=== PATIENT | female | born 1970 | race Caucasian/White ===

== ENCOUNTER 2017-01-26 22:43 | Emergency (ER) | payer OTHER ==
[~2017-01-26] VITALS: Ht 177.8 cm; Wt 156.4 kg
[2017-01-27 00:37] LABS: BASOPHIL COUNT 0.1 K/uL (0-0.1); EOSINOPHIL (%) 1.4 % (0-5); EOSINOPHIL COUNT 0.1 K/uL (0-0.3); HEMATOCRIT 42.6 % (36.0-46.0); IMMATURE GRANULOCYTE (%) 0.7 % (0.0-0.7); IMMATURE GRANULOCYTE COUNT 0.1 K/uL; INSTRUMENT ABS NEUTROPHIL CT 5.6 K/uL; LYMPHOCYTE COUNT 2.7 K/uL (1.0-2.8); MCH 32.7 PG (29.0-34.0); MCHC 34.3 G/DL (30.0-36.0); MCV 95.5 FL (83-99); MEAN PLAT.VOLUME 9.9 uM^3 (9.5-12.4); MONOCYTE (%) 6.1 % (3-12); MONOCYTE COUNT 0.6 K/uL (0-0.8); NEUTROPHIL (%) 61.1 % (45-76); NEUTROPHIL COUNT 5.6 K/uL (1.8-6.4); PLATELET COUNT 236 K/uL (156-360); RBC DIS.WIDTH-CV 12.3 % (11.8-14.6); RBC DIS.WIDTH-SD 43.1 % (39-53); RED BLOOD COUNT 4.46 M/uL (3.80-5.20); WHITE BLOOD COUNT 9.1 K/uL (4.1-10.2)
[2017-01-27 00:51] LABS: CHLORIDE 104 mEq/L (99-109); POTASSIUM 3.8 mEq/L (3.7-5.4); SODIUM 136 mEq/L (136-147)
[2017-01-27 00:52] LABS: GLUCOSE 100 mg/dL (70-99)
[2017-01-27 00:53] LABS: PTT 25.4 (25-32)
[2017-01-27 00:54] LABS: ANION GAP 12 MEQ/L (2-14)
[2017-01-27 00:56] LABS: GFR ESTIMATE (CALCULATED) > 59 mL/min/
[2017-01-27 00:57] LABS: UREA NITROGEN (BUN) 10 mg/dL (9-23)
[2017-01-27 02:21] LABS: HDL CHOLESTEROL 49 MG/DL (Desirable>=50); LDL CHOLESTEROL 137 mg/dL (Desirable<100); NON-HDL CHOLESTEROL 166 mg/dL (Desirable<160); TOTAL CHOLESTEROL 215 mg/dL (Desirable<200); TRIGLYCERIDES 145 MG/DL (Normal: <150)
[2017-01-27 02:31] VITALS: BP 120/77
[2017-01-27 07:16] LABS: Estimated Average Glucose 123 mg/dL (70-123); HEMOGLOBIN A1c (GLYCOHEMOGLOB) 5.9 % HGB (Below 5.7)
== END 2017-01-27 02:31 | disposition home or self-care (01) ==
LOC: EME 22:43
PROVIDERS: Emergency Medicine
DX: R51 Headache (principal); R47.01 Aphasia; I10 Essential (primary) hypertension; R20.2 Paresthesia of skin; Z86.73 Personal history of transient ischemic attack (TIA), and cerebral infarction without residual deficits; F17.200 Nicotine dependence, unspecified, uncomplicated
CPT/HCPCS: 70450; 80048; 80061; 83036; 85025; 85610; 85730; 93005; 99281; 99285; J0780; J1200; J7030

== ENCOUNTER 2017-02-09 23:00 | Emergency (ER) | payer OTHER ==
[~2017-02-09] VITALS: Ht 177.8 cm; Wt 157.3 kg
[2017-02-10] MEDS ORDERED: NORCO 5/3251 TABLET PO (00:07)
[2017-02-10 00:14] VITALS: BP 141/71
== END 2017-02-10 00:39 | disposition home or self-care (01) ==
LOC: EME 23:00
DX: M25.561 Pain in right knee (principal)
CPT/HCPCS: 73564; 99281; 99284